=== PATIENT | male | born 1965 | race Caucasian/White ===

== ENCOUNTER 2017-07-29 16:01 | Emergency (ER) | payer BC ==
[2017-07-29] MEDS ORDERED: DEXAMETHASONE 4 MG TAB PO ONE (17:29)
--- NOTE | 2017-07-29 17:38 | EDPHY ---
H & P Stated Complaint: R LATERAL NECK SWELLING SWOLLEN LYMPH DIFFICULTY SWALLOWING Time Seen by Provider: 07/29/17 16:30 HPI/ROS: Chief complaint: Right-sided neck swelling History of present illness: This is a 52-year-old male who presents to the emergency department for right-sided neck swelling. He reports the onset of symptoms approximately a week ago. They have been persistent. He states it hurts when he swallows. He denies precipitating factors such as cold symptoms or trauma. He denies alleviating factors. He denies other associated signs or symptoms including no drooling, no changes in voice, no difficulty breathing. No fever. No rash. No other associated signs or symptoms. Review of systems: A 10 point review of systems was obtained and other than described above was negative - Personal History Current Tetanus/Diphtheria Vaccine: Yes - Medical/Surgical History Hx Asthma: No Hx Chronic Respiratory Disease: No Hx Diabetes: No Hx Cardiac Disease: No Hx Renal Disease: No Hx Cirrhosis: No Hx Alcoholism: No Hx HIV/AIDS: No Hx Splenectomy or Spleen Trauma: No Other PMH: APPY - Social History Smoking Status: Never smoked - Physical Exam Exam: General Appearance: Alert and no distress. Eyes: Pupils equal and round no injection. ENT: Tympanic membranes, external auditory canals, external ears and surrounding soft tissue including over the mastoids are unremarkable. Nasopharynx is not injected. There is no rhinorrhea. Oropharynx is mildly injected. The uvula appears mildly edematous. Slight increase in the size of the right tonsil as compared to the left. There is no exudate. The uvula is midline. No elevation of the tongue. There is no hoarseness, no drooling, no trismus, no stridor. Respiratory: Chest is non tender, lungs are clear to auscultation. Cardiac: regular rate and rhythm Musculoskeletal: Neck is supple and non tender. Extremities have full range of motion and are non tender. Skin: No rashes or lesions. Lymph: There is some right-sided cervical adenopathy. Neurological: Alert and oriented x4. Strength and sensation intact and symmetrical. No meningismus. Constitutional: Initial Vital Signs Temperature (C) 36.6 C 07/29/17 16:18 Heart Rate 71 07/29/17 16:18 Respiratory Rate 18 07/29/17 16:18 Blood Pressure 132/91 H 07/29/17 16:18 O2 Sat (%) 96 07/29/17 16:18 O2 Delivery Mode Room Air Allergies/Adverse Reactions: PLASIL Allergy (Uncoded 07/29/17 16:17) Home Medications: Medication Instructions Recorded NK [No Known Home Meds] 07/29/17 Medical Decision Making ED Course/Re-evaluation: Patient seen under the supervision of my secondary supervising physician Dr. Vimal Mcgill. Patient presents reporting swelling to the right side of his neck. There is trace edema to is the uvula and right tonsil. The rest of his physical exam is benign. Vital signs are stable. He is nontoxic. There is no drooling, no hoarseness, no trismus, no stridor. Strep swab is negative. I do not believe antibiotics are warranted at this time. I have discussed pursuing a CT scan of the neck with IV contrast to assess for potential lesions. He has declined. I will treat him symptomatically with Decadron. He is referred to ENT and is asked to see them tomorrow for recheck without fail. He is given strict return precautions. The patient voiced understanding and agreement with plan. Differential Diagnosis: Included but not limited to adenopathy, pharyngitis, quickens disease, abscess formation - Data Points Laboratory Results: 07/29/17 07/29/17 Unknown 17:50 Group A Strep Screen NEGATIVE (NEGATIVE) Group A Strep DNA Pending Medications Given: Discontinued Medications Dexamethasone (Decadron) 10 mg PO EDNOW ONE Stop: 07/29/17 17:30 Last Admin: 07/29/17 17:50 Dose: 10 mg Departure - Departure Disposition: Home, Routine, Self-Care Clinical Impression: Swollen throat Condition: Good Instructions: Lymphadenopathy (ED) Additional Instructions: Follow-up with ENT tomorrow for recheck without fail If at any time your symptoms worsen or new symptoms develop return immediately to the emergency room for recheck Referrals: NONE *PRIMARY CARE P,. [Primary Care Provider] - As per Instructions Amauri Reese MD [Medical Doctor] - As per Instructions
[2017-07-29 18:20] VITALS: BP 150/100
== END 2017-07-29 18:21 | disposition home or self-care (01) ==
DX: R22.1 Localized swelling, mass and lump, neck (principal)